=== PATIENT | female | born 1950 | race Caucasian/White ===

== ENCOUNTER 2017-02-04 13:23 | Inpatient (IN) | payer BC ==
--- NOTE | 2017-02-04 15:19 | PDOC ---
History of Present Illness - General Chief Complaint: Edema Stated Complaint: (PCP SENT) FOR EVALUATION Time Seen by Provider: 02/04/17 13:51 - History of Present Illness Initial Comments: 02/04/17 15:15 The patient is a 66 yo f w/ PMH HTN, HLD, CAD s/p stenting was sent to the ER for admission by her PCP for new onset a-fib as well as progressive SOB and leg edema. The patient recently flew up to [place] from [place] on Tuesday. Patient went to visit her PCP, Dr. Wayne, where she was found to be in A- fib. Patient states that she has been having progressively worsening Shortness of breath, fatigue and lower extremity swelling since she underwent total hip replacement in August. Patient uses only one pillow to sleep on at night and denies orthopnea. Patient denies chest pain, palpitations, abdominal pain, fevers or chills. Past History - Travel Traveled outside of the country in the last 30 days: No Close contact w/someone who was outside of country & ill: No - Past Medical History Allergies/Adverse Reactions: Allergies Allergy/AdvReac Type Severity Reaction Status Date / Time No Known Drug Allergies Allergy Verified 02/04/17 13:39 Home Medications: Ambulatory Orders Amlodipine Besylate [Norvasc -] 10 mg PO DAILY 10/22/14 Aspirin [Aspirin EC] 81 mg PO DAILY 10/22/14 Atorvastatin Ca [Lipitor -] 80 mg PO DAILY 10/22/14 Cyanocobalamin [Vitamin B12 -] 500 mcg PO DAILY 10/22/14 Losartan Potassium 50 mg PO DAILY 10/22/14 Meloxicam [Mobic -] 15 mg PO DAILY 10/22/14 Metoprolol Succinate [Toprol Xl -] 50 mg PO BID 10/22/14 Ramipril [Altace] 10 mg PO BID 10/22/14 Clopidogrel Bisulfate [Plavix -] 75 mg PO DAILY #30 tablet 10/24/14 Anemia: No Asthma: No Cancer: No Cardiac Disorders: Yes (ASHD,CAROTID STENOSIS) CVA: No COPD: No CHF: No Dementia: No Diabetes: No GI Disorders: No Disorders: No HTN: Yes Hypercholesterolemia: Yes Liver Disease: No Seizures: No Thyroid Disease: No - Surgical History Abdominal Surgery: No Appendectomy: No Cardiac Surgery: Yes (1 -2009) Cholecystectomy: No Lung Surgery: No Neurologic Surgery: No Orthopedic Surgery: No - Immunization History Immunization Up to Date: Yes - Suicide/Smoking/Psychosocial Hx Smoking History: Never smoked Have you smoked in the past 12 months: No Information on smoking cessation initiated: No Hx Alcohol Use: No Drug/Substance Use Hx: No Substance Use Type: None Hx Substance Use Treatment: No Review of Systems - Review of Systems Able to Perform ROS?: Yes Is the patient limited Welsh proficient: No Constitutional: No: Chills, Fever HEENTM: No: Blurred Vision, Recent change in vision Respiratory: Yes: Cough, Shortness of Breath, SOB with Exertion Cardiac (ROS): Yes: Edema, Irregular Heart Rate. No: Chest Pain, Lightheadedness, Palpitations, Syncope ABD/GI: No: Symptoms Reported : No: Burning, Dysuria Neurological: No: Headache, Numbness, Tingling Hematologic/Lymphatic: No: Anemia, Easy Bleeding *Physical Exam - Vital Signs Last Vital Signs Temp Pulse Resp BP Pulse Ox 97.9 F 73 15 147/64 93 L 02/04/17 13:40 02/04/17 13:40 02/04/17 13:40 02/04/17 13:40 02/04/17 13:40 - Physical Exam General Appearance: Yes: Appropriately Dressed. No: Apparent Distress HEENT: positive: EOMI, KONRAD. negative: Scleral Icterus (R), Scleral Icterus (L) Neck: positive: Trachea midline. negative: Tender Respiratory/Chest: positive: Normal Breath Sounds, Crackles (scant inspiratory crackles in middle lung mahoney). negative: Chest Tender, Respiratory Distress, Accessory Muscle Use Cardiovascular: positive: Regular Rhythm, S1, S2, Edema, Irregularly Irregular. negative: JVD, Murmur, Gallop/S3, Gallop/S4 Gastrointestinal/Abdominal: positive: Normal Bowel Sounds, Flat, Soft. negative : Tender Musculoskeletal: positive: Normal Inspection Extremity: positive: Normal Inspection Integumentary: positive: Normal Color, Dry, Warm Neurologic: positive: advertising director II-XII NML intact, Fully Oriented, Alert, Normal Mood/ Affect, Normal Response, Motor Strength 5/5 ED Treatment Course - LABORATORY CBC & Chemistry Diagram: 02/04/17 15:14 02/04/17 15:14 - RADIOLOGY Radiology Studies Ordered: Category Date Time Status CHEST CTA [CT] Stat CT Scan 02/04/17 14:47 Ordered CXRPORT [CHEST X-RAY PORTABLE*] [RAD] Stat Radiology 02/04/17 14:46 Ordered DUPLEX VASCUL US-2LEGS [US] Stat Ultrasound 02/04/17 14:45 Ordered Medical Decision Making - Medical Decision Making 02/04/17 15:35 The patient is a 66 yo f w/ PMH CAD s/p stenting, HTN, HLD who is sent to the ED by her PCP for admission and cardiac workup. Patient's progressive SOB is concnernign for new onset Afib. The patient's new onset afib coupled with recent flight and shortness of breath is also concerning for a possible pulmonary embolism. -CBC, CMP -troponin -BNP -EKG -coags -type and screen -chest CTA -LE doppler US 02/04/17 16:52 -CBC WNL -chemistry shows creatinine of 1.1 (previous labs show her baseline around 1) -b/l LE doppler negative for DVT 02/04/17 17:54 -CTA negative for PE -CHADS-vasc score 4 -ASA 325 -BNP elevated. -patient will be admitted to Dr. Garcia's service; Hospitalist covering 02/04/17 18:17 -spoke to the hospitalist team; they agreed to accept the patient to tele *DC/Admit/Observation/Transfer Diagnosis at time of Disposition: Afib Qualifiers: Atrial fibrillation type: unspecified Qualified Code(s): I48.91 - Unspecified atrial fibrillation CHF (congestive heart failure) Qualifiers: Congestive heart failure type: unspecified congestive heart failure type Congestive heart failure chronicity: acute Qualified Code(s): I50.9 - Heart failure, unspecified - Discharge Dispostion Condition at time of disposition: Improved Admit: Yes - Referrals Referrals: Davide Wayne MD [Primary Care Provider] - - Patient Instructions - Post Discharge Activity
[2017-02-04 15:27] LABS: EOSINOPHIL 0.7 % (0-4.5); MCH 31.7 pg (25.7-33.7); MCHC 33.5 g/dl (32.0-36.0); MEAN CELL VOLUME 94.7 fl (80-96); MEAN PLT VOLUME 8.2 fl (7.5-11.1); NEUTROPHILS 72.1 % (42.8-82.8); PLATELET COUNT 269 K/MM3 (134-434); RDW 13.9 % (11.6-15.6); WHITE BLOOD COUNT 7.3 K/mm3 (4.0-10.0)
[2017-02-04 15:38] LABS: INR 1.29 (0.82-1.09); PROTHROMBIN TIME (PATIENT) 14.6 SEC (9.98-11.88)
[2017-02-04 15:45] LABS: ALBUMIN 3.9 g/dl (3.4-5.0); ANION GAP 13 (8-16); BILIRUBIN,TOTAL 3.3 mg/dL (0.2-1.0); CALCIUM 9.3 mg/dL (8.5-10.1); CO2 26 mmol/L (21-32); CREATININE 1.1 mg/dL (0.55-1.02); GLUCOSE,RANDOM 113 mg/dL (74-106); SGOT/AST 29 U/L (15-37); SGPT/ALT 19 U/L (12-78)
--- NOTE | 2017-02-04 15:45 | PDOC ---
Attending Attestation - HPI HPI: 02/04/17 17:38 66 year old female, with significant past medical history of HTN, HLD, CAD s/p stenting, who presents to the emergency room sent by Dr. Varela for new onset Afib.The patient recently returned home from a trip [place]. She denies palpitations, chest pain. PCP: Dr. Varela Cardioloist: Dr. Agee - Physicial Exam PE: 02/04/17 17:40 Vitals: Triage Vital signs reviewed General Appearance: no acute distress, well nourished well developed Head: Atraumatic Eyes: Pupils equal reactive round, extraocular movement intact Neck: Supple; No Nucal rigidity Chest Wall: Nontender Cardiac: Regular rate and rhythym, no murmurs, no rubs, no gallops Lungs: Clear to auscultation bilateral, good air movement bilaterally Skin: Warm and dry, no rashes or lesions, no rash, no petechiae Psych: Normal mood, normal affect <Amanda Saunders - Last Filed: 02/04/17 18:03> - Resident Resident Name: Estevan Esteves - ED Attending Attestation I have performed the following: I have examined & evaluated the patient, The case was reviewed & discussed with the resident, I agree w/resident's findings & plan, Exceptions are as noted - Medical Decision Making 02/04/17 17:54 Recent surgery recent travel noted to be short of breath with new A. fib CTA ordered negative for PE. We will diurese treat with aspirin [place] 2 score 2. We' ll admit to medicine for echo and additional anticoagulation further management of A. fib and pleural effusions <Dwaine Kim - Last Filed: 02/04/17 19:15> Heart Score/ECG Review #1 02/04/17 18:03 EKG performed at 17:13 demonstrates Atrial Fibrillation with a rate of 71. No st elevations, no t wave inversions <Amanda Saunders - Last Filed: 02/04/17 18:03>
[2017-02-04 15:48] LABS: ALK PHOS 145 U/L (45-117); TOT PROT 7.5 g/dl (6.4-8.2); TROPONIN I < 0.02 ng/ml (0.00-0.05)
[2017-02-04] MEDS ORDERED: ASPIRIN 325 MG ENTERIC COATED TABLET (FP) PO SCH (18:00)
[2017-02-04] MEDS ORDERED: ASPIRIN 81 MG CHEWABLE TABLETS ONE (18:30)
--- NOTE | 2017-02-04 19:24 | CON.CARD ---
Consult Consult Specialty:: Cardiology Referred by:: Hospitalist Medicine Reason for Consultation:: CHF - History of Present Illness Chief Complaint: Dyspnea History of Present Illness: The patient is a 66 yo f w/ PMH HTN, HLD, CAD s/p LEANA LAD 2007, carotid stenosis s/p CEA, hyperlipidemia, right hip replacement referred to the ER for admission by her PCP for newly diagnosed afib as well as progressive SOB and fatigue with exertion and R>L leg edema. She denies orthopnea, chest pain, palpitations, near or true syncope. Previously on Altace and losartan d/cirilo due to hyperkalemia. - History Source History Provided By: Patient Limitations to Obtaining History: No Limitations - Past Medical History Cardio/Vascular: Yes: CAD, HTN, Hyperlipdemia - Alcohol/Substance Use Hx Alcohol Use: No - Smoking History Smoking history: Never smoked Have you smoked in the past 12 months: No Home Medications - Allergies Allergies/Adverse Reactions: Allergies Allergy/AdvReac Type Severity Reaction Status Date / Time No Known Drug Allergies Allergy Verified 02/04/17 13:39 - Home Medications Home Medications: Ambulatory Orders Amlodipine Besylate [Norvasc -] 10 mg PO DAILY 10/22/14 Aspirin [Aspirin EC] 81 mg PO DAILY 10/22/14 Atorvastatin Ca [Lipitor -] 80 mg PO DAILY 10/22/14 Cyanocobalamin [Vitamin B12 -] 500 mcg PO DAILY 10/22/14 Losartan Potassium 50 mg PO DAILY 10/22/14 Meloxicam [Mobic -] 15 mg PO DAILY 10/22/14 Metoprolol Succinate [Toprol Xl -] 50 mg PO BID 10/22/14 Ramipril [Altace] 10 mg PO BID 10/22/14 Clopidogrel Bisulfate [Plavix -] 75 mg PO DAILY #30 tablet 10/24/14 Review of Systems - Review of Systems Respiratory: reports: SOB on Exertion - Risk Factors Known Risk Factors: Yes: Age, Gender, Hypertension Vital Signs: Vital Signs Temperature 98.1 F 02/04/17 18:15 Pulse Rate 68 02/04/17 18:15 Respiratory Rate 20 02/04/17 18:15 Blood Pressure 144/75 02/04/17 18:15 O2 Sat by Pulse Oximetry (%) 94 L 02/04/17 18:15 Constitutional: Yes: No Distress, Calm Neck: Yes: Supple Respiratory: Yes: Regular, Diminished Gastrointestinal: Yes: Normal Bowel Sounds, Soft Cardiovascular: Yes: Pulse Irregular JVD: No Carotid Bruit: No Heart Sounds: Yes: S1, S2 Murmur: Yes: Systolic Murmur, Grade 1 Edema: Yes Edema: LLE: 1+, RLE: 2+ - Other Data Labs, Other Data: CBC, BMP 02/04/17 15:14 02/04/17 15:14 INR, PTT INR 1.29 (0.82-1.09) H 02/04/17 15:14 Troponin, BNP 02/04/17 02/04/17 15:14 15:14 Troponin I < 0.02 Cancelled B-Natriuretic Peptide 3324.09 H Troponin, BNP 02/04/17 02/04/17 15:14 15:14 Troponin I < 0.02 Cancelled B-Natriuretic Peptide 3324.09 H Afib @ 71 Imaging - Results Cat Scan: Report Reviewed (No PE, moderate bilateral effusions) Ultrasound: Report Reviewed (No DVT bilaterally) Problem List - Problems (1) Hypertensive cardiomegaly with heart failure Code(s): I11.0 - HYPERTENSIVE HEART DISEASE WITH HEART FAILURE (2) Hyperlipidemia Code(s): E78.5 - HYPERLIPIDEMIA, UNSPECIFIED Qualifiers: Hyperlipidemia type: pure hypercholesterolemia Qualified Code(s): E78.00 - Pure hypercholesterolemia, unspecified; E78.0 - Pure hypercholesterolemia (3) Acute on chronic diastolic (congestive) heart failure Code(s): I50.33 - ACUTE ON CHRONIC DIASTOLIC (CONGESTIVE) HEART FAILURE (4) Status post carotid endarterectomy Code(s): Z98.890 - OTHER SPECIFIED POSTPROCEDURAL STATES (5) Coronary artery disease Code(s): I25.10 - ATHSCL HEART DISEASE OF [place] CORONARY ARTERY W/O ANG PCTRS Qualifiers: Coronary Disease-Associated Artery/Lesion type: [place] artery [place] vs. transplanted heart: [place] heart Associated angina: without angina Qualified Code(s): I25.10 - Atherosclerotic heart disease of [place] coronary artery without angina pectoris (6) Status post coronary artery stent placement Code(s): Z95.5 - PRESENCE OF CORONARY ANGIOPLASTY IMPLANT AND GRAFT (7) Abnormal cardiac function test Code(s): R94.30 - ABNORMAL RESULT OF CARDIOVASCULAR FUNCTION STUDY, UNSP (8) Afib Code(s): I48.91 - UNSPECIFIED ATRIAL FIBRILLATION Qualifiers: Atrial fibrillation type: persistent Qualified Code(s): I48.1 - Persistent atrial fibrillation Assessment/Plan Echo: Normal LV size and fxn, mod LAE, mild MR, mod TR, RVSP 50 mmHg 08/09/16 P-Myoview: Moderate size anterior and anteroapical mild ischemia, LVEF 72% 1. Acute on chronic diastolic failure 2. Newly diagnosed rate-controlled afib [id number] 3. CAD s/p LEANA LAD with mildly abnormal MPI 4. HTN/HCVSD 5. Hyperlipidemia 6. s/p right THR P:1. IV diuresis with monitor diuretic response, renal fxn and electrolytes, check TSH and lipid panel 2. Change ASA to Eliquis 5 bid given elevated risk score 3. Continue Toprol XL 50 qd, Norvasc 10 qd, rechallenge losartan 50 qd and observe for hyperkalemia, Lipitor 80 qd 4. Compression therapy 5. Thank you for consultative opportunity
--- NOTE | 2017-02-04 19:46 | HP ---
CHIEF COMPLAINT: SOB, Leg Edema PCP: Dr. Varela HISTORY OF PRESENT ILLNESS: This is a 66 y/o woman with a past medical history of HTN, HLD, CAD (s/p stent) . Who presents to the ED from her PCP's office for new onset Afib, SOB. Patient reports over the past few days she has had increased fatigue and swelling with tightness to her lower extremities R>L. Patient also reports having a dry cough x 2 weeks worse at bedtime. Patient reports orthopnea and PATTER[place] worse over the last few days. Patient denies fever, chills, dizziness, CP, palpitations, AP, N/ V/D, constipation, dysuria. Patient reports recent travel from [place] to [place] 1.5hr flight ER course was notable for: (1) CTA- negative PE (2) Duplex of B/L LE- negative DVT (3) EKG- Afib 71 bpm, no ST or TWI Recent Travel: Yes PAST MEDICAL HISTORY: See HPI PAST SURGICAL HISTORY: See HPI Social History: Smoking: Never Alcohol: None Drugs: None Lives with spouse Family History: Allergies No Known Drug Allergies Allergy (Verified 02/04/17 13:39) HOME MEDICATIONS: Home Medications Medication Instructions Recorded Amlodipine Besylate [Norvasc -] 10 mg PO DAILY 10/22/14 Aspirin [Aspirin EC] 81 mg PO DAILY 10/22/14 Atorvastatin Ca [Lipitor -] 80 mg PO DAILY 10/22/14 Cyanocobalamin [Vitamin B12 -] 500 mcg PO DAILY 10/22/14 Losartan Potassium 50 mg PO DAILY 10/22/14 Meloxicam [Mobic -] 15 mg PO DAILY 10/22/14 Metoprolol Succinate [Toprol Xl -] 50 mg PO BID 10/22/14 Ramipril [Altace] 10 mg PO BID 10/22/14 Clopidogrel Bisulfate [Plavix -] 75 mg PO DAILY #30 tablet 10/24/14 REVIEW OF SYSTEMS CONSTITUTIONAL: Absent: fever, chills, diaphoresis, generalized weakness, malaise, loss of appetite, weight change HEENT: Absent: rhinorrhea, nasal congestion, throat pain, throat swelling, difficulty swallowing, mouth swelling, ear pain, eye pain, visual changes CARDIOVASCULAR: peripheral edema Absent: chest pain, syncope, palpitations, irregular heart rate, lightheadedness RESPIRATORY: cough, shortness of breath, dyspnea with exertion, orthopnea Absent: wheezing, stridor, hemoptysis GASTROINTESTINAL: Absent: abdominal pain, abdominal distension, nausea, vomiting, diarrhea, constipation, melena, hematochezia GENITOURINARY: Absent: dysuria, frequency, urgency, hesitancy, hematuria, flank pain, genital pain MUSCULOSKELETAL: Absent: myalgia, arthralgia, joint swelling, back pain, neck pain SKIN: Absent: rash, itching, pallor HEMATOLOGIC/IMMUNOLOGIC: Absent: easy bleeding, easy bruising, lymphadenopathy, frequent infections ENDOCRINE: Absent: unexplained weight gain, unexplained weight loss, heat intolerance, cold intolerance NEUROLOGIC: Absent: headache, focal weakness or paresthesias, dizziness, unsteady gait, seizure, mental status changes, bladder or bowel incontinence PSYCHIATRIC: Absent: anxiety, depression, suicidal or homicidal ideation, hallucinations. PHYSICAL EXAMINATION Vital Signs - 24 hr 02/04/17 02/04/17 13:40 18:15 Temperature 97.9 F 98.1 F Pulse Rate 73 Pulse Rate [ 68 Apical] Respiratory 15 20 Rate Blood Pressure 147/64 Blood Pressure 144/75 [Right Arm] O2 Sat by Pulse 93 L 94 L Oximetry (%) GENERAL: Awake, alert, and fully oriented, in no acute distress. HEAD: Normal with no signs of trauma. EYES: Pupils equal, round and reactive to light, extraocular movements intact, sclera anicteric, conjunctiva clear. No lid lag. EARS, NOSE, THROAT: Ears normal, nares patent, oropharynx clear without exudates. Moist mucous membranes. NECK: Normal range of motion, supple without lymphadenopathy, JVD, or masses. LUNGS: Breath sounds equal, clear to auscultation bilaterally. No wheezes, and no crackles. No accessory muscle use. HEART: Irregular rate and rhythm, normal S1 and S2 without murmur, rub or gallop. ABDOMEN: Soft, nontender, not distended, normoactive bowel sounds, no guarding, no rebound, no masses. No hepatomegaly or splenomegaly. MUSCULOSKELETAL: Normal range of motion at all joints. No bony deformities or tenderness. No CVA tenderness. UPPER EXTREMITIES: 2+ pulses, warm, well-perfused. No cyanosis. No clubbing. No peripheral edema. LOWER EXTREMITIES: 2+ pulses, warm, well-perfused. No calf tenderness. +2 pitting R>L peripheral edema. NEUROLOGICAL: Cranial nerves II-XII intact. Normal speech. Gait not observed PSYCHIATRIC: Cooperative. Good eye contact. Appropriate mood and affect. SKIN: Warm, dry, normal turgor, no rashes or lesions noted, normal capillary refill. Laboratory Results - last 24 hr 02/04/17 02/04/17 02/04/17 15:14 15:14 15:14 WBC 7.3 RBC 4.34 Hgb 13.8 D Hct 41.1 MCV 94.7 MCH 31.7 MCHC 33.5 RDW 13.9 D Plt Count 269 D MPV 8.2 D Neutrophils % 72.1 Lymphocytes % 17.4 Monocytes % 8.8 Eosinophils % 0.7 Basophils % 1.0 PT with INR INR Sodium Cancelled 136 Potassium Cancelled 4.7 Chloride Cancelled 97 L Carbon Dioxide Cancelled 26 Anion Gap Cancelled 13 BUN Cancelled 17 Creatinine Cancelled 1.1 H Creat Clearance w eGFR Cancelled 49.39 Random Glucose Cancelled 113 H Calcium Cancelled 9.3 Total Bilirubin Cancelled 3.3 H D AST Cancelled 29 D ALT Cancelled 19 Alkaline Phosphatase Cancelled 145 H D Troponin I < 0.02 B-Natriuretic Peptide 3324.09 H Total Protein Cancelled 7.5 Albumin Cancelled 3.9 02/04/17 02/04/17 15:14 15:14 WBC RBC Hgb Hct MCV MCH MCHC RDW Plt Count MPV Neutrophils % Lymphocytes % Monocytes % Eosinophils % Basophils % PT with INR 14.60 H INR 1.29 H Sodium Potassium Chloride Carbon Dioxide Anion Gap BUN Creatinine Creat Clearance w eGFR Random Glucose Calcium Total Bilirubin AST ALT Alkaline Phosphatase Troponin I Cancelled B-Natriuretic Peptide Total Protein Albumin ASSESSMENT/PLAN: This is a 66 y/o woman with a PMHx of: HTN, HLD, CAD (s/p stent, 2009). Admitted to Telemetry New Onset Afib, CHF for further evaluation of their emergent condition. Plan: 1. New Onset Afib - Continue tele monitoring - Cardiology following - Continue BB, ARB - Will start Eliquis per cardiology - [id number] Score 4 - Serial Enzymes - Asa given in ED 2. CHF - Likely secondary to Afib - Lasix given in ED, will continue per cardiology - Continue tele monitoring - Monitor CBC, BMP - Chest Xray- CM, bilateral small pleural effusions - Echo - Daily weights - Strict INOs - Compression Bandages - Elevate extremity 3. CAD - s/p Stent - BB, ARB 4. HTN - Controlled - Continue meds per cardiology - Monitor renal function 5. HLD - Continue Lipitor - Lipid Panel in am - Monitor LFTs 6. FEN - Fluid Restriction 1L - Replete lytes prn - Low Na Diet 7. DVT Prophylaxis - OOB - TEDs - Eliquis Code Status: HCP, Full Code Dispo: Requires Inpatient Care Problem List - Problem (1) New onset a-fib Code(s): I48.91 - UNSPECIFIED ATRIAL FIBRILLATION (2) HTN (hypertension) Code(s): I10 - ESSENTIAL (PRIMARY) HYPERTENSION (3) CHF (congestive heart failure) Code(s): I50.9 - HEART FAILURE, UNSPECIFIED Qualifiers: Congestive heart failure type: unspecified congestive heart failure type Congestive heart failure chronicity: acute Qualified Code(s): I50.9 - Heart failure, unspecified (4) Coronary artery disease Code(s): I25.10 - ATHSCL HEART DISEASE OF [place] CORONARY ARTERY W/O ANG PCTRS Qualifiers: Coronary Disease-Associated Artery/Lesion type: [place] artery [place] vs. transplanted heart: [place] heart Associated angina: without angina Qualified Code(s): I25.10 - Atherosclerotic heart disease of [place] coronary artery without angina pectoris (5) Hyperlipidemia Code(s): E78.5 - HYPERLIPIDEMIA, UNSPECIFIED Qualifiers: Hyperlipidemia type: pure hypercholesterolemia Qualified Code(s): E78.00 - Pure hypercholesterolemia, unspecified; E78.0 - Pure hypercholesterolemia (6) Status post carotid endarterectomy Code(s): Z98.890 - OTHER SPECIFIED POSTPROCEDURAL STATES (7) Status post coronary artery stent placement Code(s): Z95.5 - PRESENCE OF CORONARY ANGIOPLASTY IMPLANT AND GRAFT Visit type - Emergency Visit Emergency Visit: Yes ED Registration Date: 02/04/17 Care time: The patient presented to the Emergency Department on the above date and was hospitalized for further evaluation of their emergent condition. - New Patient This patient is new to me today: Yes Date on this admission: 02/04/17 - Critical Care Critical Care patient: No
[2017-02-04] MEDS: FUROSEMIDE 40 MG/4 ML INJECTABLE VIAL IVPUSH SCH (21:23)
[2017-02-04] MEDS: ATORVASTATIN CA 80 MG TABLET (FP) PO SCH (21:23)
[2017-02-04] MEDS: APIXABAN 5 MG TABLET PO SCH (21:23)
[2017-02-04 23:22] VITALS: BMI 30.1
[2017-02-05 04:18] LABS: EOSINOPHIL 1.8 % (0-4.5); MCH 32.1 pg (25.7-33.7); MCHC 33.9 g/dl (32.0-36.0); MEAN CELL VOLUME 94.7 fl (80-96); MEAN PLT VOLUME 8.3 fl (7.5-11.1); NEUTROPHILS 50.3 % (42.8-82.8); PLATELET COUNT 237 K/MM3 (134-434); RDW 13.9 % (11.6-15.6); WHITE BLOOD COUNT 4.7 K/mm3 (4.0-10.0)
[2017-02-05 04:37] LABS: ANION GAP 10 (8-16); CALCIUM 8.5 mg/dL (8.5-10.1); CHOLESTEROL 115 mg/dL (50-200); CO2 30 mmol/L (21-32); GLUCOSE,RANDOM 94 mg/dL (74-106); MAGNESIUM 1.8 mg/dL (1.8-2.4); PHOSPHOROUS 3.7 mg/dL (2.5-4.9)
[2017-02-05 04:45] LABS: THYROID STIMULATING HORMONE 1.34 uIU/ml (0.358-3.74)
[2017-02-05] MEDS: METOPROLOL SUCCINATE 50 MG TAB.SR.24H (FP) PO SCH (09:36)
[2017-02-05] MEDS: APIXABAN 5 MG TABLET PO SCH ×2 (09:37→22:01)
[2017-02-05] MEDS: LOSARTAN POTASSIUM 50 MG TABLET (FP) PO SCH (09:37)
--- NOTE | 2017-02-05 11:00 | PN ---
Progress Note (short form) - Note Progress Note: Chief Complaint: Events noted, notes reviewed, denies any chest pain, dyspnea improved History of Present Illness: Seen and examined on telemetry. Events noted, notes reviewed, denies any chest pain, dyspnea improved 07/22/2016 Echocardiography: Normal LV size and function, LA dilatation, mild MR , moderate TR with RVSP of 50 mmHg 08/09/16 MPI study: Moderate size anterior and ashely-apical defect mild ischemia , LV-EF 72% Medications: Current Medications Apixaban (Eliquis -) 5 mg PO BID [facility] Last Admin: 02/05/17 09:37 Dose: 5 mg Atorvastatin Calcium (Lipitor -) 80 mg PO HS [facility] Last Admin: 02/04/17 21:23 Dose: 80 mg Furosemide (Lasix Injection -) 40 mg IVPUSH BID@0600,1400 [facility] Last Admin: 02/04/17 21:23 Dose: 40 mg Losartan Potassium (Cozaar -) 50 mg PO DAILY [facility] Last Admin: 02/05/17 09:37 Dose: 50 mg Metoprolol Succinate (Toprol Xl -) 50 mg PO DAILY [facility] Last Admin: 02/05/17 09:36 Dose: 50 mg Review of Systems Constitutional: denies Chills or Fever Respiratory: denies Cough or Sputum Production Cardiovascular: As noted above Gastrointestinal: denies Nausea, Vomiting, Diarrhea, Constipation or Abdominal Pain Genitourinary: No Symptoms Reported Musculoskeletal: No Symptoms Reported Vital Signs: Last Vital Signs Temp Pulse Resp BP Pulse Ox 98 F 90 18 145/78 95 02/05/17 09:00 02/05/17 09:00 02/05/17 09:00 02/05/17 09:00 02/05/17 06:00 Intake & Output 02/02/17 02/03/17 02/04/17 02/05/17 23:59 23:59 23:59 23:59 Intake Total 300 200 Balance 300 200 Weight 170 lb 96 lb 4 oz Constitutional: No Distress, Calm Neck: Supple Negative JVD Respiratory: Diminished at the Bases Cardiovascular: S1 S2 Irregularly Irregular Grade 2/6 SM Gastrointestinal: Soft Benign Normal Bowel Sounds Ext: Edema R>L resolving Labs: CBC, BMP 02/05/17 03:00 02/05/17 03:00 Hepatic Panel Total Bilirubin 3.3 mg/dL (0.2-1.0) H D 02/04/17 15:14 AST 29 U/L (15-37) D 02/04/17 15:14 ALT 19 U/L (12-78) 02/04/17 15:14 Alkaline Phosphatase 145 U/L (45-117) H D 02/04/17 15:14 Albumin 3.9 g/dl (3.4-5.0) 02/04/17 15:14 INR, PTT INR 1.29 (0.82-1.09) H 02/04/17 15:14 Assessment/Plan ASSESSMENT: 1. Acute on chronic class I-II NYHA classification diastolic congestive heart failure, resolving 2. Persistent atrial fibrillation with [id number] score of 3 3. CAD post PCI/LEANA with an abnormal MPI study angina pectoris 4. HTN 5. Hyperlipidemia 6. Post right total hip replacement PLAN: 1. Continue IV Lasix 2. Continue Toprol XL 3. Continue Cozaar 4. Continue A/C with Eliquis 5. Continue Lipitor 6. Echocardiography to evaluate LV size and function and LA size 7. Discussed in detail with the patient option of proceeding with JUSTEN guided cardioversion vs. A/C for 3-4 weeks and cardioversion, await echocardiography results Macie Agee M.D.
[2017-02-05] MEDS: FUROSEMIDE 40 MG/4 ML INJECTABLE VIAL IVPUSH SCH (14:30)
--- NOTE | 2017-02-05 15:13 | PN ---
Progress Note, Physician Chief Complaint: SOB and swelling of the ext - Current Medication List Current Medications: Active Medications Apixaban (Eliquis -) 5 mg PO BID [facility] Last Admin: 02/05/17 09:37 Dose: 5 mg Atorvastatin Calcium (Lipitor -) 80 mg PO HS [facility] Last Admin: 02/04/17 21:23 Dose: 80 mg Furosemide (Lasix -) 80 mg PO BID@0600,1400 [facility] Losartan Potassium (Cozaar -) 50 mg PO DAILY [facility] Last Admin: 02/05/17 09:37 Dose: 50 mg Metoprolol Succinate (Toprol Xl -) 50 mg PO DAILY [facility] Last Admin: 02/05/17 09:36 Dose: 50 mg - Objective Vital Signs: Vital Signs Temperature 98 F 02/05/17 09:00 Pulse Rate 90 02/05/17 09:00 Respiratory Rate 18 02/05/17 09:00 Blood Pressure 145/78 02/05/17 09:00 O2 Sat by Pulse Oximetry (%) 95 02/05/17 06:00 Constitutional: Yes: Well Nourished, No Distress, Calm Eyes: Yes: WNL, Conjunctiva Clear HENT: Yes: WNL, Atraumatic Neck: Yes: WNL, Supple Cardiovascular: Yes: WNL, Regular Rate and Rhythm, S1, S2 Respiratory: Yes: WNL, Regular, CTA Bilaterally Gastrointestinal: Yes: WNL, Normal Bowel Sounds Edema: LLE: 1+, RLE: 1+ Labs: CBC, BMP 02/05/17 03:00 02/05/17 03:00 INR, PTT INR 1.29 (0.82-1.09) H 02/04/17 15:14 Problem List - Problems (1) Acute on chronic diastolic (congestive) heart failure Assessment/Plan: 2/2 to new onset atrial fibrillation patient is doing well now she has no complaints will switch furosemide to PO instead of IV due to burning sensation in the arm for the patient furosemide 80mg BID instead of 40mg IVP Code(s): I50.33 - ACUTE ON CHRONIC DIASTOLIC (CONGESTIVE) HEART FAILURE (2) Afib Assessment/Plan: new onset patient on anticoagulation [patient on rate control follow cardiology recommendation c/w metoprolol succinate Code(s): I48.91 - UNSPECIFIED ATRIAL FIBRILLATION Qualifiers: Atrial fibrillation type: persistent Qualified Code(s): I48.1 - Persistent atrial fibrillation (3) HTN (hypertension) Assessment/Plan: c/w home medication c/w cozaar Code(s): I10 - ESSENTIAL (PRIMARY) HYPERTENSION (4) Hyperlipidemia Assessment/Plan: c.w atrovastatin Code(s): E78.5 - HYPERLIPIDEMIA, UNSPECIFIED Qualifiers: Hyperlipidemia type: pure hypercholesterolemia Qualified Code(s): E78.00 - Pure hypercholesterolemia, unspecified; E78.0 - Pure hypercholesterolemia
--- NOTE | 2017-02-05 15:34 | EKG ---
Test Reason : Blood Pressure : / mmHG Vent. Rate : 071 BPM Atrial Rate : 122 BPM P-R Int : 000 ms QRS Dur : 084 ms QT Int : 418 ms P-R-T Axes : 000 071 227 degrees QTc Int : 454 ms UNDETERMINED RHYTHM CANNOT EXCLUDE ACCELERATED JUNCTIONAL RHYTHM ABNORMAL ECG WHEN COMPARED WITH ECG OF 18-MAY-2007 12:50, CURRENT UNDETERMINED RHYTHM PRECLUDES RHYTHM COMPARISON, NEEDS REVIEW REPEAT EKG INDICATED Confirmed by ELSY EVANS MD ([id number]) on 02/05/2017 3:34:32 PM Referred By: Confirmed By:ELSY EVANS MD
[2017-02-05] MEDS: ATORVASTATIN CA 80 MG TABLET (FP) PO SCH (22:01)
[2017-02-06] MEDS ORDERED: FUROSEMIDE 40 MG TABLET (FP) PO SCH ×2 (06:00)
[2017-02-06 09:16] LABS: ALBUMIN 3.3 g/dl (3.4-5.0); ALK PHOS 117 U/L (45-117); ANION GAP 14 (8-16); BILIRUBIN,TOTAL 2.5 mg/dL (0.2-1.0); CALCIUM 8.4 mg/dL (8.5-10.1); CO2 30 mmol/L (21-32); CREATININE 1.1 mg/dL (0.55-1.02); GLUCOSE,RANDOM 92 mg/dL (74-106); MAGNESIUM 1.6 mg/dL (1.8-2.4); SGOT/AST 26 U/L (15-37); SGPT/ALT 16 U/L (12-78); TOT PROT 6.4 g/dl (6.4-8.2)
[2017-02-06 09:53] LABS: BASOPHIL 1.5 % (0-2.0); EOSINOPHIL 2.3 % (0-4.5); MCH 31.2 pg (25.7-33.7); MCHC 33.2 g/dl (32.0-36.0); MEAN CELL VOLUME 94.1 fl (80-96); MEAN PLT VOLUME 8.3 fl (7.5-11.1); NEUTROPHILS 39.1 % (42.8-82.8); PLATELET COUNT 242 K/MM3 (134-434); WHITE BLOOD COUNT 5.4 K/mm3 (4.0-10.0)
[2017-02-06] MEDS: METOPROLOL SUCCINATE 50 MG TAB.SR.24H (FP) PO SCH (10:09)
[2017-02-06] MEDS: APIXABAN 5 MG TABLET PO SCH ×2 (10:09→22:57)
[2017-02-06] MEDS: LOSARTAN POTASSIUM 50 MG TABLET (FP) PO SCH (10:09)
--- NOTE | 2017-02-06 10:36 | PN ---
Progress Note (short form) - Note Progress Note: Chief Complaint: Events noted, notes reviewed, denies any chest pain, dyspnea improved, atrial fibrillation persists rate controlled History of Present Illness: Seen and examined on telemetry. Events noted, notes reviewed, denies any chest pain, dyspnea improved, atrial fibrillation persists rate controlled Pending results of Echocardiography plan for possible JUSTEN guided cardioversion, vs. 3-4 weeks of A/C and then cardioversion, antiarrhythmic therapy to be considered pending results of echocardiography, pulmonary vein isolation/RFA if above measures fail as per guidelines/recommendations 07/22/2016 Echocardiography: Normal LV size and function, LA dilatation, mild MR , moderate TR with RVSP of 50 mmHg 08/09/16 MPI study: Moderate size anterior and ashely-apical defect mild ischemia , LV-EF 72% Medications: Current Medications Apixaban (Eliquis -) 5 mg PO BID [facility] Last Admin: 02/06/17 10:09 Dose: 5 mg Atorvastatin Calcium (Lipitor -) 80 mg PO HS [facility] Last Admin: 02/05/17 22:01 Dose: 80 mg Furosemide (Lasix -) 60 mg PO BID@0600,1400 [facility] Last Admin: 02/06/17 06:04 Dose: 60 mg Losartan Potassium (Cozaar -) 50 mg PO DAILY [facility] Last Admin: 02/06/17 10:09 Dose: 50 mg Metoprolol Succinate (Toprol Xl -) 50 mg PO DAILY [facility] Last Admin: 02/06/17 10:09 Dose: 50 mg Review of Systems Constitutional: denies Chills or Fever Respiratory: denies Cough or Sputum Production Cardiovascular: As noted above Gastrointestinal: denies Nausea, Vomiting, Diarrhea, Constipation or Abdominal Pain Genitourinary: No Symptoms Reported Musculoskeletal: No Symptoms Reported Vital Signs: Last Vital Signs Temp Pulse Resp BP Pulse Ox 98.1 F 60 18 120/62 95 02/06/17 06:00 02/06/17 06:00 02/06/17 06:00 02/06/17 06:00 02/05/17 21:00 Intake & Output 02/03/17 02/04/17 02/05/17 02/06/17 23:59 23:59 23:59 23:59 Intake Total 300 680 250 Output Total 900 1800 Balance 300 -220 -1550 Weight 170 lb 96 lb 4 oz 163 lb 3.2 oz Constitutional: No Distress, Calm Neck: Supple Negative JVD Respiratory: Diminished at the Bases Cardiovascular: S1 S2 Irregularly Irregular Grade 2/6 SM Gastrointestinal: Soft Benign Normal Bowel Sounds Ext: Negative Edema Labs: CBC, BMP 02/06/17 06:15 02/06/17 06:15 INR, PTT INR 1.29 (0.82-1.09) H 02/04/17 15:14 Hepatic Panel Total Bilirubin 2.5 mg/dL (0.2-1.0) H D 02/06/17 06:15 AST 26 U/L (15-37) 02/06/17 06:15 ALT 16 U/L (12-78) 02/06/17 06:15 Alkaline Phosphatase 117 U/L (45-117) 02/06/17 06:15 Albumin 3.3 g/dl (3.4-5.0) L 02/06/17 06:15 Assessment/Plan ASSESSMENT: 1. Acute on chronic class I-II NYHA classification diastolic congestive heart failure, resolved 2. Persistent atrial fibrillation with [id number] score of 3 on A/C NOAC's/ Eliquis 3. CAD post PCI/LEANA with an abnormal MPI study angina pectoris 4. HTN 5. Hyperlipidemia 6. Post right total hip replacement PLAN: 1. Continue Lasix PO but decrease dosage 2. Continue Toprol XL 3. Continue Cozaar 4. Continue A/C with Eliquis 5. Continue Lipitor 6. Echocardiography to evaluate LV size and function and LA size 7. Discussed again in detail with the patient option of proceeding with JUSTEN guided cardioversion vs. A/C for 3-4 weeks and cardioversion, await echocardiography results Macie Agee M.D.
--- NOTE | 2017-02-06 12:33 | PN ---
Progress Note, Physician Chief Complaint: SOB and swelling of the ext - Current Medication List Current Medications: Active Medications Apixaban (Eliquis -) 5 mg PO BID [facility] Last Admin: 02/06/17 10:09 Dose: 5 mg Atorvastatin Calcium (Lipitor -) 80 mg PO HS [facility] Last Admin: 02/05/17 22:01 Dose: 80 mg Furosemide (Lasix -) 40 mg PO DAILY [facility] Losartan Potassium (Cozaar -) 50 mg PO DAILY [facility] Last Admin: 02/06/17 10:09 Dose: 50 mg Metoprolol Succinate (Toprol Xl -) 50 mg PO DAILY [facility] Last Admin: 02/06/17 10:09 Dose: 50 mg - Objective Vital Signs: Vital Signs Temperature 98 F 02/06/17 10:00 Pulse Rate 68 02/06/17 10:00 Respiratory Rate 18 02/06/17 10:00 Blood Pressure 130/70 02/06/17 10:00 O2 Sat by Pulse Oximetry (%) 97 02/06/17 09:00 Constitutional: Yes: Well Nourished, No Distress, Calm Eyes: Yes: WNL, Conjunctiva Clear, EOM Intact HENT: Yes: WNL, Atraumatic Neck: Yes: WNL Cardiovascular: Yes: WNL, Pulse Irregular, S1, S2 Respiratory: Yes: WNL, Regular, CTA Bilaterally Gastrointestinal: Yes: WNL, Normal Bowel Sounds ...Rectal Exam: Yes: WNL, Deferred Labs: CBC, BMP 02/06/17 06:15 02/06/17 06:15 INR, PTT INR 1.29 (0.82-1.09) H 02/04/17 15:14 Problem List - Problems (1) Acute on chronic diastolic (congestive) heart failure Assessment/Plan: 2/ to new onset atrial fibrillation patient is doing well now she has no complaints will switch furosemide to PO instead of IV due to burning sensation in the arm for the patient furosemide 40mg tablets twice a day cardiology is following up planning on possible cardioversion Code(s): I50.33 - ACUTE ON CHRONIC DIASTOLIC (CONGESTIVE) HEART FAILURE (2) Afib Assessment/Plan: new onset patient on anticoagulation patient on rate control follow cardiology recommendation c/w metoprolol succinate . cardiology Discussed in detail with the patient option of proceeding with JUSTEN guided cardioversion vs. A/C for 3-4 weeks and cardioversion, await echocardiography results Code(s): I48.91 - UNSPECIFIED ATRIAL FIBRILLATION Qualifiers: Atrial fibrillation type: persistent Qualified Code(s): I48.1 - Persistent atrial fibrillation (3) HTN (hypertension) Assessment/Plan: c/w home medication c/w cozaar Code(s): I10 - ESSENTIAL (PRIMARY) HYPERTENSION (4) Hyperlipidemia Assessment/Plan: c.w atrovastatin Code(s): E78.5 - HYPERLIPIDEMIA, UNSPECIFIED Qualifiers: Hyperlipidemia type: pure hypercholesterolemia Qualified Code(s): E78.00 - Pure hypercholesterolemia, unspecified; E78.0 - Pure hypercholesterolemia
[2017-02-06] MEDS: ATORVASTATIN CA 80 MG TABLET (FP) PO SCH (22:57)
[2017-02-07 08:11] LABS: ALBUMIN 3.1 g/dl (3.4-5.0); ANION GAP 11 (8-16); CALCIUM 8.2 mg/dL (8.5-10.1); CO2 31 mmol/L (21-32); GLUCOSE,RANDOM 89 mg/dL (74-106); SGOT/AST 25 U/L (15-37); SGPT/ALT 15 U/L (12-78)
[2017-02-07 08:13] LABS: ALK PHOS 112 U/L (45-117); BILIRUBIN,TOTAL 2.5 mg/dL (0.2-1.0); TOT PROT 6.1 g/dl (6.4-8.2)
[2017-02-07] MEDS: APIXABAN 5 MG TABLET PO SCH ×2 (10:19→21:48)
[2017-02-07] MEDS: FUROSEMIDE 40 MG TABLET (FP) PO SCH (10:19)
[2017-02-07] MEDS: METOPROLOL SUCCINATE 50 MG TAB.SR.24H (FP) PO SCH (10:19)
[2017-02-07] MEDS: LOSARTAN POTASSIUM 50 MG TABLET (FP) PO SCH (10:19)
[2017-02-07 11:30] LABS: MAGNESIUM 1.9 mg/dL (1.8-2.4)
--- NOTE | 2017-02-07 12:04 | PN ---
Progress Note, Physician Chief Complaint: Ms Malhotra is without complaint. Denies cp, sob, n/v. Expresses nervousness about JUSTEN tomorrow. - Current Medication List Current Medications: Active Medications Apixaban (Eliquis -) 5 mg PO BID [facility] Last Admin: 02/07/17 10:19 Dose: 5 mg Atorvastatin Calcium (Lipitor -) 80 mg PO HS [facility] Last Admin: 02/06/17 22:57 Dose: 80 mg Furosemide (Lasix -) 40 mg PO DAILY [facility] Last Admin: 02/07/17 10:19 Dose: 40 mg Losartan Potassium (Cozaar -) 50 mg PO DAILY [facility] Last Admin: 02/07/17 10:19 Dose: 50 mg Metoprolol Succinate (Toprol Xl -) 50 mg PO DAILY [facility] Last Admin: 02/07/17 10:19 Dose: 50 mg Potassium Chloride (K-Dur -) 20 meq PO DAILY [facility] - Objective Vital Signs: Vital Signs Temperature 36.8 C 02/07/17 10:00 Pulse Rate 62 02/07/17 10:00 Respiratory Rate 14 02/07/17 10:00 Blood Pressure 130/56 02/07/17 10:00 O2 Sat by Pulse Oximetry (%) 97 02/06/17 21:00 Constitutional: Yes: Well Nourished, No Distress, Calm Cardiovascular: Yes: Pulse Irregular. No: Tachycardia, Gallop, Murmur, Rub Respiratory: Yes: Regular, CTA Bilaterally. No: Rales, Rhonchi, Wheezes Gastrointestinal: Yes: Normal Bowel Sounds, Soft. No: Distention, Tenderness Extremities: Yes: WNL Edema: No Labs: CBC, BMP 02/06/17 06:15 02/07/17 05:27 INR, PTT INR 1.29 (0.82-1.09) H 02/04/17 15:14 Problem List - Problems (1) Acute on chronic diastolic (congestive) heart failure Assessment/Plan: -appreciate cardiology assistance -secondary to afib with rvr -controlled -continue lasix 40mg daily -add potassium supplementation Code(s): I50.33 - ACUTE ON CHRONIC DIASTOLIC (CONGESTIVE) HEART FAILURE (2) Afib Assessment/Plan: -rate controlled -continue eliquis -planning for JUSTEN with possible cardioversion Code(s): I48.91 - UNSPECIFIED ATRIAL FIBRILLATION Qualifiers: Atrial fibrillation type: persistent Qualified Code(s): I48.1 - Persistent atrial fibrillation (3) HTN (hypertension) Assessment/Plan: -continue cozaar and toprol xl Code(s): I10 - ESSENTIAL (PRIMARY) HYPERTENSION (4) Hyperlipidemia Assessment/Plan: -continue lipitor Code(s): E78.5 - HYPERLIPIDEMIA, UNSPECIFIED Qualifiers: Hyperlipidemia type: pure hypercholesterolemia Qualified Code(s): E78.00 - Pure hypercholesterolemia, unspecified; E78.0 - Pure hypercholesterolemia
--- NOTE | 2017-02-07 13:10 | PN ---
Progress Note, Physician Chief Complaint: Events noted Not in distress History of Present Illness: Patient was seen and examined. Awake and alert. Chart was reviewed Denies chest pain, SOB or palpitation Remains in AF with controlled ventricular response - Current Medication List Current Medications: Active Medications Apixaban (Eliquis -) 5 mg PO BID [facility] Last Admin: 02/07/17 10:19 Dose: 5 mg Atorvastatin Calcium (Lipitor -) 80 mg PO HS [facility] Last Admin: 02/06/17 22:57 Dose: 80 mg Furosemide (Lasix -) 40 mg PO DAILY [facility] Last Admin: 02/07/17 10:19 Dose: 40 mg Losartan Potassium (Cozaar -) 50 mg PO DAILY [facility] Last Admin: 02/07/17 10:19 Dose: 50 mg Metoprolol Succinate (Toprol Xl -) 50 mg PO DAILY [facility] Last Admin: 02/07/17 10:19 Dose: 50 mg Potassium Chloride (K-Dur -) 20 meq PO DAILY [facility] - Objective Vital Signs: Vital Signs Temperature 98.2 F 02/07/17 10:00 Pulse Rate 62 02/07/17 10:00 Respiratory Rate 14 02/07/17 10:00 Blood Pressure 130/56 02/07/17 10:00 O2 Sat by Pulse Oximetry (%) 97 02/07/17 09:00 Cardiovascular: Yes: Pulse Irregular, Murmur (SM LSB and apex), S1, S2 Respiratory: Yes: CTA Bilaterally Gastrointestinal: Yes: Normal Bowel Sounds, Soft. No: Tenderness Edema: No Additional Findings/Remarks: Review of Systems Constitutional: denies Chills or Fever Respiratory: denies Cough or Sputum Production Cardiovascular: denies: chest pain, SOB, palpitation Gastrointestinal: denies Nausea, Vomiting, Diarrhea, Constipation or Abdominal Pain Musculoskeletal: No Symptoms Reported Labs: CBC, BMP 02/06/17 06:15 02/07/17 05:27 INR, PTT INR 1.29 (0.82-1.09) H 02/04/17 15:14 Problem List - Problems (1) Acute on chronic diastolic (congestive) heart failure Code(s): I50.33 - ACUTE ON CHRONIC DIASTOLIC (CONGESTIVE) HEART FAILURE (2) Afib Code(s): I48.91 - UNSPECIFIED ATRIAL FIBRILLATION Qualifiers: Atrial fibrillation type: persistent Qualified Code(s): I48.1 - Persistent atrial fibrillation (3) Coronary artery disease Code(s): I25.10 - ATHSCL HEART DISEASE OF [place] CORONARY ARTERY W/O ANG PCTRS Qualifiers: Coronary Disease-Associated Artery/Lesion type: [place] artery [place] vs. transplanted heart: [place] heart Associated angina: without angina Qualified Code(s): I25.10 - Atherosclerotic heart disease of [place] coronary artery without angina pectoris (4) HTN (hypertension) Code(s): I10 - ESSENTIAL (PRIMARY) HYPERTENSION Qualifiers: Hypertension type: essential hypertension Qualified Code(s): I10 - Essential (primary) hypertension (5) Hyperlipidemia Code(s): E78.5 - HYPERLIPIDEMIA, UNSPECIFIED Qualifiers: Hyperlipidemia type: pure hypercholesterolemia Qualified Code(s): E78.00 - Pure hypercholesterolemia, unspecified; E78.0 - Pure hypercholesterolemia (6) Status post carotid endarterectomy Code(s): Z98.890 - OTHER SPECIFIED POSTPROCEDURAL STATES (7) Status post coronary artery stent placement Code(s): Z95.5 - PRESENCE OF CORONARY ANGIOPLASTY IMPLANT AND GRAFT Assessment/Plan 1. Acute on chronic class I-II NYHA classification diastolic congestive heart failure, resolved 2. Persistent atrial fibrillation with [id number] score of 3 on A/C NOAC/Eliquis 3. CAD post PCI/LEANA with an abnormal MPI study angina pectoris 4. HTN 5. Hyperlipidemia 6. Post right total hip replacement PLAN: 1. Continue Lasix PO (adjust dose accordingly) 2. Continue Toprol XL and Cozaar 3. Continue A/C with Eliquis 4. Continue Lipitor 5. Echocardiography to evaluate LV/RV and valvular function 6. To proceed with JUSTEN and synchronized cardioversion tomorrow AM. Further plans are to follow Keegan Ruiz MD
[2017-02-07] MEDS: POTASSIUM CHLORIDE TABS 20 MEQ TABLET.ER (FP) PO SCH (13:32)
[2017-02-07] MEDS: ATORVASTATIN CA 80 MG TABLET (FP) PO SCH (21:48)
[2017-02-08 07:35] LABS: BASOPHIL 1.7 % (0-2.0); EOSINOPHIL 2.5 % (0-4.5); MCH 31.4 pg (25.7-33.7); MCHC 33.1 g/dl (32.0-36.0); MEAN PLT VOLUME 8.1 fl (7.5-11.1); NEUTROPHILS 43.6 % (42.8-82.8); PLATELET COUNT 270 K/MM3 (134-434); RDW 13.9 % (11.6-15.6); WHITE BLOOD COUNT 5.5 K/mm3 (4.0-10.0)
--- NOTE | 2017-02-08 07:58 | PN ---
Progress Note (short form) - Note Progress Note: Chief Complaint: Events noted, notes reviewed, denies any chest pain, dyspnea resolved, atrial fibrillation persists rate controlled History of Present Illness: Seen and examined on telemetry. Events noted, notes reviewed, denies any chest pain, dyspnea resolved, atrial fibrillation persists rate controlled Echocardiography yesterday revealed left atrial dilatation measuring 4.9 cm, mild diffuse global left ventricular hypokinesia with mild reduction in left ventricular ejection fraction, moderate mitral valve regurgitation, moderate tricuspid valve regurgitation with RVSP between 50-60 mmHg consistent with moderate degree of pulmonary hypertension Echocardiography dated July 22, 2016 revealed normal left ventricular size and function, LA dilatation, mild MR, moderate TR with RVSP of 50 mmHg Myocardial perfusion imaging study performed August 09, 2016 revealed moderate size anterior and ashely-apical wall defect compatible with mild ischemia, LV- EF 72% Medications: Current Medications Apixaban (Eliquis -) 5 mg PO BID [facility] Last Admin: 02/07/17 21:48 Dose: 5 mg Atorvastatin Calcium (Lipitor -) 80 mg PO HS [facility] Last Admin: 02/07/17 21:48 Dose: 80 mg Furosemide (Lasix -) 40 mg PO DAILY [facility] Last Admin: 02/07/17 10:19 Dose: 40 mg Losartan Potassium (Cozaar -) 50 mg PO DAILY [facility] Last Admin: 02/07/17 10:19 Dose: 50 mg Metoprolol Succinate (Toprol Xl -) 50 mg PO DAILY [facility] Last Admin: 02/07/17 10:19 Dose: 50 mg Potassium Chloride (K-Dur -) 20 meq PO DAILY [facility] Last Admin: 02/07/17 13:32 Dose: 20 meq Review of Systems Constitutional: denies Chills or Fever Respiratory: denies Cough or Sputum Production Cardiovascular: As noted above Gastrointestinal: denies Nausea, Vomiting, Diarrhea, Constipation or Abdominal Pain Genitourinary: No Symptoms Reported Musculoskeletal: No Symptoms Reported Vital Signs: Last Vital Signs Temp Pulse Resp BP Pulse Ox 98 F 60 14 150/66 96 02/08/17 10:13 02/08/17 10:13 02/08/17 10:13 02/08/17 10:13 02/08/17 09:47 Intake & Output 02/05/17 02/06/17 02/07/17 02/08/17 23:59 23:59 23:59 23:59 Intake Total 680 1030 350 0 Output Total 900 3600 1600 Balance -220 -2570 -1250 0 Weight 96 lb 4 oz 163 lb 3.2 oz 163 lb 3.2 oz 158 lb 6.4 oz Constitutional: No Distress, Calm Neck: Supple Negative JVD Respiratory: Diminished at the Bases Cardiovascular: S1 S2 Irregularly Irregular Grade 2/6 SM Gastrointestinal: Soft Benign Normal Bowel Sounds Ext: Negative Edema Labs: CBC, BMP 02/08/17 05:10 02/08/17 05:10 Hepatic Panel Total Bilirubin 2.5 mg/dL (0.2-1.0) H 02/07/17 05:27 AST 25 U/L (15-37) 02/07/17 05:27 ALT 15 U/L (12-78) 02/07/17 05:27 Alkaline Phosphatase 112 U/L (45-117) 02/07/17 05:27 Albumin 3.1 g/dl (3.4-5.0) L 02/07/17 05:27 Assessment/Plan ASSESSMENT: 1. Acute on chronic class I-II NYHA classification systolic/diastolic congestive heart failure, resolved 2. Persistent atrial fibrillation with [id number] score of 3 on A/C NOAC's/ Eliquis 3. CAD post PCI/LEANA with an abnormal MPI study angina pectoris 4. HTN 5. Hyperlipidemia 6. Post right total hip replacement PLAN: 1. Continue Lasix 2. Continue Toprol XL 3. Continue Cozaar 4. Continue A/C with Eliquis 5. Continue Lipitor 6. To proceed with JUSTEN guided cardioversion considering the above-noted clinical presentation and results of the above-noted echocardiography, discussed in detail with the patient, procedure is planned for later this morning Macie Agee M.D.
[2017-02-08] MEDS ORDERED: PROPOFOL 20 ML ONE ×2 (08:08)
[2017-02-08 08:18] LABS: ANION GAP 8 (8-16); CALCIUM 8.6 mg/dL (8.5-10.1); CO2 33 mmol/L (21-32); GLUCOSE,RANDOM 92 mg/dL (74-106); PHOSPHOROUS 3.6 mg/dL (2.5-4.9)
[2017-02-08 10:14] VITALS: BP 150/66; PULSE 60; TEMP 98
--- NOTE | 2017-02-08 10:43 | EKG ---
Test Reason : Blood Pressure : / mmHG Vent. Rate : 061 BPM Atrial Rate : 061 BPM P-R Int : 250 ms QRS Dur : 086 ms QT Int : 458 ms P-R-T Axes : 079 053 191 degrees QTc Int : 461 ms SINUS RHYTHM WITH 1ST DEGREE A-V BLOCK ABNORMAL ECG WHEN COMPARED WITH ECG OF 04-FEB-2017 17:13, RHYTHM CHANGED ABOVE ST-T ABNORMALITIES ARE PERSISTING IN LEADS II III aVF V4-V6 U WAVES IN SELECTED LEADS CLINICAL CORRELATION IS RECOMMENDED Confirmed by ELSY EVANS MD ([id number]) on 02/08/2017 10:43:16 AM Referred By: Mono BARNEY Confirmed By:ELSY EVANS MD
--- NOTE | 2017-02-08 11:24 | PN ---
Progress Note, Physician Chief Complaint: Ms Malhotra says she feels well. Denies cp, sob, n/v. Hoping to go home later this afternoon. - Current Medication List Current Medications: Active Medications Apixaban (Eliquis -) 5 mg PO BID [facility] Last Admin: 02/07/17 21:48 Dose: 5 mg Atorvastatin Calcium (Lipitor -) 80 mg PO HS [facility] Last Admin: 02/07/17 21:48 Dose: 80 mg Furosemide (Lasix -) 40 mg PO DAILY [facility] Last Admin: 02/07/17 10:19 Dose: 40 mg Losartan Potassium (Cozaar -) 50 mg PO DAILY [facility] Last Admin: 02/07/17 10:19 Dose: 50 mg Metoprolol Succinate (Toprol Xl -) 50 mg PO DAILY [facility] Last Admin: 02/07/17 10:19 Dose: 50 mg Potassium Chloride (K-Dur -) 20 meq PO DAILY [facility] Last Admin: 02/07/17 13:32 Dose: 20 meq - Objective Vital Signs: Vital Signs Temperature 36.6 C 02/08/17 10:13 Pulse Rate 60 02/08/17 10:13 Respiratory Rate 14 02/08/17 10:13 Blood Pressure 150/66 02/08/17 10:13 O2 Sat by Pulse Oximetry (%) 96 02/08/17 09:47 Constitutional: Yes: Well Nourished, No Distress, Calm Cardiovascular: Yes: Regular Rate and Rhythm. No: Gallop, Murmur, Rub Respiratory: Yes: Regular, CTA Bilaterally. No: Rales, Rhonchi, Wheezes Gastrointestinal: Yes: Normal Bowel Sounds, Soft. No: Distention, Tenderness Extremities: Yes: WNL Edema: No Labs: CBC, BMP 02/08/17 05:10 02/08/17 05:10 INR, PTT INR 1.29 (0.82-1.09) H 02/04/17 15:14 Problem List - Problems (1) Acute on chronic diastolic (congestive) heart failure Code(s): I50.33 - ACUTE ON CHRONIC DIASTOLIC (CONGESTIVE) HEART FAILURE (2) Afib Code(s): I48.91 - UNSPECIFIED ATRIAL FIBRILLATION Qualifiers: Atrial fibrillation type: persistent Qualified Code(s): I48.1 - Persistent atrial fibrillation (3) HTN (hypertension) Code(s): I10 - ESSENTIAL (PRIMARY) HYPERTENSION Qualifiers: Hypertension type: essential hypertension Qualified Code(s): I10 - Essential (primary) hypertension (4) Hyperlipidemia Code(s): E78.5 - HYPERLIPIDEMIA, UNSPECIFIED Qualifiers: Hyperlipidemia type: pure hypercholesterolemia Qualified Code(s): E78.00 - Pure hypercholesterolemia, unspecified; E78.0 - Pure hypercholesterolemia Assessment/Plan (1) Acute on chronic diastolic (congestive) heart failure Assessment/Plan: -appreciate cardiology assistance -secondary to afib with rvr -controlled -decrease lasix to 20mg daily -decrease KCl to 10mEq daily Code(s): I50.33 - ACUTE ON CHRONIC DIASTOLIC (CONGESTIVE) HEART FAILURE (2) Afib Assessment/Plan: -JUSTEN and cardioversion performed -now in NSR -continue toprol xl and eliquis Code(s): I48.91 - UNSPECIFIED ATRIAL FIBRILLATION Qualifiers: Atrial fibrillation type: persistent Qualified Code(s): I48.1 - Persistent atrial fibrillation (3) HTN (hypertension) Assessment/Plan: -continue cozaar and toprol xl Code(s): I10 - ESSENTIAL (PRIMARY) HYPERTENSION (4) Hyperlipidemia Assessment/Plan: -continue lipitor Code(s): E78.5 - HYPERLIPIDEMIA, UNSPECIFIED Qualifiers: Hyperlipidemia type: pure hypercholesterolemia Qualified Code(s): E78.00 - Pure hypercholesterolemia, unspecified; E78.0 - Pure hypercholesterolemia Dispo -possible discharge today, awaiting cardiology recommendations
[2017-02-08] MEDS: POTASSIUM CHLORIDE TABS 20 MEQ TABLET.ER (FP) PO SCH (13:19)
[2017-02-08] MEDS: FUROSEMIDE 40 MG TABLET (FP) PO SCH (13:19)
[2017-02-08] MEDS: METOPROLOL SUCCINATE 50 MG TAB.SR.24H (FP) PO SCH (13:20)
[2017-02-08] MEDS: APIXABAN 5 MG TABLET PO SCH (13:20)
[2017-02-08] MEDS: LOSARTAN POTASSIUM 50 MG TABLET (FP) PO SCH (13:20)
--- NOTE | 2017-02-08 13:51 | DS ---
Physical Examination Vital Signs: Vital Signs Temperature 36.6 C 02/08/17 10:13 Pulse Rate 60 02/08/17 10:13 Respiratory Rate 14 02/08/17 10:13 Blood Pressure 150/66 02/08/17 10:13 O2 Sat by Pulse Oximetry (%) 96 02/08/17 09:47 Labs: CBC, BMP 02/08/17 05:10 02/08/17 05:10 Discharge Summary Reason For Visit: CHF, ATRIAL FIBRILLATION Current Active Problems Abnormal cardiac function test (Acute) Acute on chronic diastolic (congestive) heart failure (Acute) Afib (Acute) CHF (congestive heart failure) (Acute) Coronary artery disease (Acute) HTN (hypertension) (Acute) Hyperlipidemia (Acute) Hypertensive cardiomegaly with heart failure (Acute) Status post carotid endarterectomy (Acute) Status post coronary artery stent placement (Acute) Condition: Good - Instructions Diet, Activity, Other Instructions: resume previous diet and activity Referrals: Macie Agee MD [Staff Physician] - Davide Wayne MD [Primary Care Provider] - Disposition: HOME - Home Medications Comprehensive Discharge Medication List: Ambulatory Orders Atorvastatin Ca [Lipitor] 80 mg PO DAILY 10/22/14 Cyanocobalamin [Vitamin B12 -] 500 mcg PO DAILY 10/22/14 Metoprolol Succinate [Toprol XL -] 50 mg PO DAILY 10/22/14 Apixaban [Eliquis -] 5 mg PO BID #60 tablet 02/08/17 Furosemide [Lasix] 20 mg PO DAILY #30 tablet 02/08/17 Losartan Potassium [Cozaar -] 50 mg PO DAILY #30 tablet 02/08/17 Potassium Chloride [K-Dur -] 10 meq PO DAILY #30 tablet.er 02/08/17
--- NOTE | 2017-02-08 23:15 | PN ---
Progress Note (short form) - Note Progress Note: JUSTEN and SYCHRONIZED CARDIOVERSION See official JUSTEN report Successful synchronized cardioversion to sinus rhythm after 4 attempts at 120 - 150 - 200 -200 J. Patient tolerated procedure without any complications Keegan BARNEY MD Problem List - Problems (1) Acute on chronic diastolic (congestive) heart failure Code(s): I50.33 - ACUTE ON CHRONIC DIASTOLIC (CONGESTIVE) HEART FAILURE (2) Afib Code(s): I48.91 - UNSPECIFIED ATRIAL FIBRILLATION Qualifiers: Atrial fibrillation type: persistent Qualified Code(s): I48.1 - Persistent atrial fibrillation (3) Coronary artery disease Code(s): I25.10 - ATHSCL HEART DISEASE OF [place] CORONARY ARTERY W/O ANG PCTRS Qualifiers: Coronary Disease-Associated Artery/Lesion type: [place] artery [place] vs. transplanted heart: [place] heart Associated angina: without angina Qualified Code(s): I25.10 - Atherosclerotic heart disease of [place] coronary artery without angina pectoris (4) HTN (hypertension) Code(s): I10 - ESSENTIAL (PRIMARY) HYPERTENSION Qualifiers: Hypertension type: essential hypertension Qualified Code(s): I10 - Essential (primary) hypertension (5) Hyperlipidemia Code(s): E78.5 - HYPERLIPIDEMIA, UNSPECIFIED Qualifiers: Hyperlipidemia type: pure hypercholesterolemia Qualified Code(s): E78.00 - Pure hypercholesterolemia, unspecified; E78.0 - Pure hypercholesterolemia (6) Status post carotid endarterectomy Code(s): Z98.890 - OTHER SPECIFIED POSTPROCEDURAL STATES (7) Status post coronary artery stent placement Code(s): Z95.5 - PRESENCE OF CORONARY ANGIOPLASTY IMPLANT AND GRAFT
== END 2017-02-08 17:59 | disposition home or self-care (01) | DRG 308 ==
LOC: JER 13:23 → JERBED 18:19 → J4W 20:09
PROVIDERS: ADMIT Internal Medicine; ATTEND Internal Medicine
PROC: 5A2204Z Restoration of Cardiac Rhythm, Single (ICD-10-PCS; 2017-02-08)
PROC: B246ZZ4 Ultrasonography of Right and Left Heart, Transesophageal (ICD-10-PCS; principal; 2017-02-08 08:15)
DX: I48.91 Unspecified atrial fibrillation (principal); I50.33 Acute on chronic diastolic (congestive) heart failure; I11.0 Hypertensive heart disease with heart failure; I25.10 Atherosclerotic heart disease of native coronary artery without angina pectoris; E78.5 Hyperlipidemia, unspecified; Z98.61 Coronary angioplasty status
CPT/HCPCS: 36415; 71010-TC; 71275-TC; 80048; 80053; 80061; 83036; 83721; 83735; 83880; 84100; 84443; 84484; 85025; 85610; 93005; 93010; 93306-TC; 93312; 93325; 93970-TC; 99283-25